=== PATIENT | female | born 1945 | race Caucasian/White ===

== ENCOUNTER 2018-01-10 14:28 | Observation (INO) ==
--- NOTE | 2018-01-10 15:43 | Emergency Department Note ---
Disposition Clinical Impression: Polymyalgia rheumatica, Jaw pain, Atypical angina Hypertension Qualifiers: Hypertension type: essential hypertension Qualified Code(s): I10 - Essential ( primary) hypertension Disposition: Admitted As Inpatient Condition: Good Time of Disposition: 18:56 General Adult HPI - General Chief complaint: ED General Medical Stated complaint: Face pain,high B/P Time Seen by Provider: 01/10/18 15:21 Source: patient, family Mode of arrival: ambulatory Limitations: no limitations Nursing Notes Reviewed: Yes Vital Signs Reviewed: Yes - History of Present Illness HPI Narrative: 72-year-old female with significant past medical history of uncontrolled hypertension presenting to the emergency department complaining of left jaw pain. Patient states she has tried to follow up with her primary care physician but has been unable to make an appointment. Due to the past 2-3 days has been having worsening left-sided jaw pain radiating up from her neck. She denies chest pain, shortness of breath, fevers. Patient was placed on amlodipine for blood pressure states she stopped taking it because it made her gassy and constipated. Patient and put on Coreg. Patient takes this as needed basis. Patient has been taking her blood pressure multiple times a day a week and states her blood pressures is "all over the place". Patient states she has never had a cardiac workup. Pain Scale: 6 - Related Data Home Medications Medication Instructions Recorded Confirmed Cholecalciferol (Vitamin D3) 2,000 unit PO DAILY 10/20/15 01/10/18 [Vitamin D3] Mv-Mn/FA/Vit K1/Lycop/Lut/Zeax 1 - 2 each PO DAILY 10/20/15 01/10/18 [Ocuvite Eye + Multi Tablet] Vitamin B Complex [B Complex] 1 each PO DAILY 10/20/15 01/10/18 Carvedilol [Coreg] 6.25 mg PO BIDWM 12/24/17 01/10/18 Previous Rx's Medication Instructions Recorded predniSONE [PredniSONE] 40 mg PO DAILY #12 tablet 01/11/18 Allergies Allergy/AdvReac Type Severity Reaction Status Date / Time azithromycin Allergy Unknown Unknown Verified 01/10/18 14:33 clarithromycin Allergy Unknown Unknown Verified 01/10/18 14:33 Minocycline Allergy Unknown Unknown Verified 01/10/18 14:33 nitrofurantoin Allergy Unknown Unknown Verified 01/10/18 14:33 Sulfa (Sulfonamide Allergy Unknown Unknown Verified 01/10/18 14:33 Antibiotics) All systems ED: reviewed and negative except as stated. ENT ED: Reports: other (Jaw pain) Past Medical History - Past Medical History Attestation: Yes The following information was validated with the patient. Medical history: Reports: cancer, hypertension Psychiatric history: Reports: anxiety TRADING ASSISTANT history: Reports: no TRADING ASSISTANT history - Social History Smoking Status: Never smoker Smokeless Tobacco Status: No Alcohol use: Reports: none Drug use: Reports: none Physical Exam - General Limitations: no limitations General appearance: alert, in no apparent distress - Head Head exam: atraumatic, normocephalic, normal inspection - Eye Eye exam: Present: normal appearance. Absent: scleral icterus, conjunctival injection - ENT ENT exam: normal exam, normal oropharynx, mucous membranes moist - Neck Neck exam: Present: normal inspection, full ROM. Absent: tenderness, meningismus - Chest Chest inspection: Present: normal inspection, symmetric chest wall rise. Absent : tenderness, rash - Respiratory Respiratory exam: Present: normal lung sounds bilaterally. Absent: respiratory distress, wheezes - Cardiovascular Cardiovascular exam: Present: regular rate, normal rhythm, normal heart sounds - Abdominal Exam Abdominal exam: Present: soft, Non-Tender. Absent: distention, guarding, rebound - Extremities Exam Extremities exam: Present: normal inspection, full ROM - Neurological Exam Neurological exam: Present: alert, oriented X3 - Psychiatric Psychiatric exam: Present: normal affect, normal mood - Skin Skin exam: Present: warm, intact Course Course Narrative: 72-year-old female presenting to the emergency Department chief complaint of uncontrollable high blood pressure along with left jaw pain. Patient has never had a cardiac workup before. Patient's blood pressure in the 190s systolic her. We will provide the patient with oral Coreg at her at home dose. And observed. Patient is alert and oriented 3 in the room. Hypertensive but otherwise stable vital signs. - Reevaluation(s) Reevaluation #1: Patient remained hypertensive after oral medication. We will perform a cardiac workup on the patient at this time including EKG, troponin, chest x-ray. We will also provide her with nitroglycerin. Disposition pending results. Patient is alert and oriented 3 in room. Hypertensive but otherwise stable vital signs. Patient agrees with this plan. Reevaluation #2: Patient states jaw pain is relieved after 2 nitros. Due to this and the fact that the patient has never been worked up for cardiac issues before we will plan to admit the patient. All patient's lab work within normal limits at this time. Patient is alert and oriented 3 in the room. After nitroglycerin patient's blood pressure lower but still hypertensive. All other vital signs stable. I spoke with the hospitalist on-call who agrees to accept the patient at this time. Vital Signs Temperature 98.3 F 01/10/18 14:33 Pulse Rate 81 01/10/18 14:33 Respiratory Rate 15 01/10/18 14:33 Blood Pressure 196/87 01/10/18 14:33 O2 Sat by Pulse Oximetry 97 01/10/18 14:33 Temperature 97.6 F 01/11/18 11:06 Pulse Rate 74 01/11/18 11:06 Respiratory Rate 20 01/11/18 11:06 Blood Pressure 144/68 01/11/18 11:06 O2 Sat by Pulse Oximetry 95 01/11/18 11:06 Oxygen Delivery Oxygen Delivery Room Air Medical Decision Making - Medical Records Medical records reviewed: Yes I reviewed the patient's medical records. - Lab Data Lab results reviewed: Yes I reviewed the patient's lab results. Result diagrams: 01/11/18 04:01 01/11/18 04:01 Lab Results 01/10/18 01/10/18 Range/Units 17:57 17:57 WBC 9.9 (4.3-11.1) K/mcL RBC 4.23 (3.82-4.97) M/mcL Hgb 12.7 (11.5-15.4) g/dL Hct 38.0 (35.3-44.9) % MCV 89.8 (83.0-100.0) fL MCH 30.0 (28.0-33.3) pg MCHC 33.4 (31.6-35.5) g/dL RDW 14.8 H (11.5-14.5) % Plt Count 241 (140-400) K/mcL MPV 10.7 (9.4-12.4) fL Immature Gran % 0.4 (0-4) % Seg Neutrophils % 70.4 % Lymphocytes % 22.9 % Monocytes % 5.9 % Eosinophils % 0.1 % Basophils % 0.3 % Neutrophils # 6.9 (1.6-8.9) K/mcL Lymphocytes # 2.3 (0.6-4.6) K/mcL Monocytes # 0.6 (0.0-1.3) K/mcL Eosinophils # 0.0 (0.0-0.6) K/mcL Basophils # 0.0 (0.0-0.2) K/mcL Sodium 136 (136-145) mEq/L Potassium 4.4 (3.5-5.1) mEq/L Chloride 104 (98-107) mEq/L Carbon Dioxide 23 (23-29) mEq/L BUN 19 (8-23) mg/dL Creatinine 0.91 (0.60-1.20) mg/dL Est GFR ( Amer) > 60 (> 60) Est GFR (Non-Af Amer) > 60 (> 60) BUN/Creatinine Ratio 21 (6-26) Glucose 98 (70-105) mg/dL Calculated Osmolality 284 (280-300) Calcium 9.2 (8.6-10.3) mg/dL Troponin I < 0.03 (< 0.04) ng/mL - Radiology Data Radiology results reviewed: Yes I reviewed the patient's radiology results. Chest X-Ray 01/10/18 18:08 IMPRESSION: No acute process. D/ / Aleksander Garcia MD / Aleksander Garcia MD Interpreting Provider: Aleksander Garcia MD - EKG Data EKG #1 EKG attestation: Yes I reviewed and interpreted this EKG. EKG results narrative: Sinus rhythm. 70 bpm. CO interval 153, QRS 88, QTc 400. No signs of acute ST segment elevation or ischemia noted. Compared to previous EKG completed on 05/2010 no significant changes noted. Attestation Statement - Attestation Attestation: I examined this patient and my medical decision-making was reviewed with the Resident Physician, Dr. Chavez. I agree with the documented findings, disposition and treatment plan as described except to the extent set forth below. Patient is a 72-year-old white female brought in by her today for complaints of severe left-sided jaw pain and elevated blood pressure. Patient has a history of hypertension and polymyalgia rheumatica on steroids follows closely with her family physician. Patient states she has been tracking her heart rate and blood pressures at home and has also been noncompliant with her medications at home as her amlodipine causes her to feel bad and she does not consistently take her other blood pressure medicine. Here in the emergency department patient is awake alert and oriented 4, no focal deficits or slurred speech. No complaints of headache or visual changes. Patient denies any chest pain pressure or heaviness, no shortness of breath, no diaphoresis, no abdominal pain or nausea vomiting. Patient complaining of severe left jaw pain and there is no appreciable facial swelling associated with this no overlying skin changes or rash, no dental pain no sore throat or ear pain and no neck discomfort. I agree with patient's physical exam findings as documented. Vitals are stable with the exception of elevated blood pressure. Patient had lab Tory evaluation performed and on physical exam assessment there is no other explanation for this severe left jaw pain and she does not have any dental etiology no upper respiratory infection no ear infection is seen no adenopathy or neck swelling. Concerning for possible atypical angina. EKG was obtained which was normal sinus rhythm without acute ischemia. Patient was provided aspirin and nitroglycerin in the nitroglycerin completely relieved her jaw pain as well as improved her blood pressure. Patient has not had any recent cardiac workup she states she had a stress test over 25 years ago but nothing since that time. Patient will be admitted for further evaluation for atypical angina and uncontrolled hypertension.
[2018-01-10] MEDS ORDERED: Aspirin 81 MG TAB.CHEW PO ONE (17:36)
[2018-01-10] MEDS: Nitroglycerin 0.4 MG TAB.SUBL SL PRN ×2 (18:03→18:16)
[2018-01-10 18:27] LABS: BUN/Creatinine Ratio 21 (6-26); Blood Urea Nitrogen 19 mg/dL (8-23); Calcium 9.2 mg/dL (8.6-10.3); Carbon Dioxide 23 mEq/L (23-29); Chloride 104 mEq/L (98-107); Glucose 98 mg/dL (70-105); Osmolality,Calculated 284 (280-300); Potassium 4.4 mEq/L (3.5-5.1); Sodium 136 mEq/L (136-145); Troponin I < 0.03 ng/mL (< 0.04); eGFR For African Americans > 60 (> 60); eGFR For Non-African Americans > 60 (> 60)
[2018-01-10] MEDS ORDERED: Nitroglycerin 1 INCH/GM PACKET TP ONE (18:41)
[2018-01-10 18:47] LABS: Basophils % 0.3 %; Eosinophils % 0.1 %; Hemoglobin 12.7 g/dL (11.5-15.4); Immature Granulocytes % 0.4 % (0-4); Lymphocytes # 2.3 K/mcL (0.6-4.6); Lymphocytes % 22.9 %; Mean Corpuscular HGB Conc 33.4 g/dL (31.6-35.5); Mean Corpuscular Volume 89.8 fL (83.0-100.0); Mean Platelet Volume 10.7 fL (9.4-12.4); Monocytes # 0.6 K/mcL (0.0-1.3); Monocytes % 5.9 %; Neutrophils # 6.9 K/mcL (1.6-8.9); Platelet Count 241 K/mcL (140-400); Red Blood Count 4.23 M/mcL (3.82-4.97); Red Cell Distribution Width 14.8 % (11.5-14.5); Segmented Neutrophils % 70.4 %
[2018-01-10] MEDS ORDERED: Naloxone 0.4 MG/ML INJ IVP PRN (21:28)
[2018-01-10] MEDS ORDERED: Acetaminophen 325 MG TABLET PO PRN (21:28)
--- NOTE | 2018-01-10 21:31 | Internal Med History&Physical ---
Date of Encounter: 01/10/18 Time of Encounter: 21:00 Assessment and Plan (1) Jaw pain Current visit: Yes Status: Acute To rule out anginal equivalent/ACS. EKG shows normal sinus rhythm, no acute ischemic changes. Chest x-ray shows no focal infiltrates. Continue telemetry monitoring, serial troponins. Check nuclear stress test in a.m. Continue beta dung, when necessary nitroglycerin. (2) Polymyalgia rheumatica Current visit: Yes Status: Chronic Noted to be on chronic steroids, which could be contributing to uncontrolled hypertension. Follows with rheumatology as outpatient. (3) Hypertension Current visit: Yes Status: Chronic Fairly controlled. Continue beta dung. Will use when necessary IV hydralazine for appropriate blood pressure control. Qualifiers: Hypertension type: essential hypertension Qualified Code(s): I10 - Essential (primary) hypertension Internal Medicine - H&P: HPI Chief complaint: chest pain Admitted From: Emergency Dept Plans for Post Hospital Care: Home History of present illness: Ms. Taveras is a 72 year old female with history of polymyalgia rheumatica, hypertension, who presents with complaints of left-sided jaw pain. Patient maintains a detailed log of blood pressure readings and blood pressure medications, reports that her blood pressure has been difficult to control and Coreg has been started recently and Norvasc stopped due to side effects. She began to notice left-sided jaw and facial pain since yesterday, associated with high readings of blood pressure. No nausea, vomiting, shortness of breath, chest pain, blurred vision. She does have nonspecific headache, no temporal pain. Past Med Surg Social Fam HX - Past Medical History Medical history: cancer (Right breast cancer), hypertension, other Psychiatric history: anxiety - Past Surgical History Surgical History: appendectomy, breast surgery (Right mastectomy, axillary dissection), cholecystectomy, hysterectomy - Social History Smoking Status: Never smoker Smokeless Tobacco Status: No Alcohol use: none Drug use: none Occupational status: retired Current living situation: Home, With Family Activity Level: Independent ambulation Recent Out of Country Travel Within the Last 8 Weeks: No Exposure or Possible Exposure to Illness During Travel: No - Family History Father Living Status: Cause of : CHF Mother Living Status: Cause of : CHF Internal Medicine - H&P: Meds Cholecalciferol (Vitamin D3) [Vitamin D] 2,000 unit PO DAILY 10/20/15 [History] Mv-Mn/FA/Vit K1/Lycop/Lut/Zeax [Ocuvite Eye + Multi Tablet] 1 - 2 each PO DAILY 10/20/15 [History] Vitamin B Complex [B Complex] 1 each PO DAILY 10/20/15 [History] Carvedilol [Coreg] 6.25 mg PO BIDWM 12/24/17 [History] predniSONE [PredniSONE] 10 mg PO DAILY 01/10/18 [History] 3 Allergy/AdvReac Type Severity Reaction Status Date / Time azithromycin Allergy Unknown Unknown Verified 01/10/18 14:33 clarithromycin Allergy Unknown Unknown Verified 01/10/18 14:33 Minocycline Allergy Unknown Unknown Verified 01/10/18 14:33 nitrofurantoin Allergy Unknown Unknown Verified 01/10/18 14:33 Sulfa (Sulfonamide Allergy Unknown Unknown Verified 01/10/18 14:33 Antibiotics) All Systems PM: A 10-system review of systems was performed and is negative for pertinent findings except as documented above in the HPI. - Constitutional Constitutional: no chills, no fever(s), no night sweats - EENT Eyes: no change in vision, no discharge, no pain, no photophobia Ears: no ear discharge, no ear pain, no tinnitus Nose, mouth and throat: as per HPI, facial pain, no dysphagia, no nasal discharge, no neck pain, no sore throat - Cardiovascular Cardiovascular ROS IM: no chest pain, no diaphoresis, no dyspnea, no lightheadedness, no palpitations, no syncope - Respiratory Respiratory: no cough, no dyspnea, no wheezing, no excessive phlegm production - Gastrointestinal Gastrointestinal: no abdominal pain, no diarrhea, no hematemesis, no hematochezia, no melena, no nausea, no vomiting - Genitourinary Genitourinary: no change in urinary stream, no dysuria, no flank pain, no hematuria - Musculoskeletal Musculoskeletal ROS IM: no numbness, no tingling - Integumentary Integumentary IM: no rash, no unusual bruising - Neurological Neurological ROS: no confusion, no convulsions, no focal weakness, no numbness, no tingling, no tremor(s) - Hematologic/Lymphatic Hematologic/Lymphatic: no easy bruising - Constitutional Vitals: Temp Pulse Resp BP Pulse Ox 97.8 F 63 16 127/68 94 01/10/18 21:09 01/10/18 21:09 01/10/18 21:09 01/10/18 21:09 01/10/18 21:09 General appearance: Present: A&O X 3, answers questions appropriately - Respiratory Respiratory exam: Present: CTAB. Absent: accessory muscle use, rales, rhonchi, wheezes - Cardiovascular Cardiovascular exam: Present: RRR, +S1, +S2. Absent: diastolic murmur, gallop, rubs, systolic murmur - GI/Abdominal GI/Abdominal exam: Present: normal bowel sounds, soft, no peritoneal signs. Absent: distended, tenderness - Extremities Exam Extremities exam: Present: full ROM, warm, radial pulses palpable and symmetrical. Absent: calf tenderness, cyanotic, pedal edema - Neurological Exam Neurological exam: Present: CN II-XII intact, oriented X3, no focal deficits. Absent: pronater drift, facial droop, speech deficit Internal Med - H&P Results - Labs CBC & Chem 7: 01/10/18 17:57 01/10/18 17:57
[2018-01-11 05:20] LABS: Basophils % 0.4 %; Eosinophils # 0.1 K/mcL (0.0-0.6); Eosinophils % 0.9 %; Hematocrit 36.6 % (35.3-44.9); Hemoglobin 12.1 g/dL (11.5-15.4); Immature Granulocytes % 0.4 % (0-4); Lymphocytes # 3.2 K/mcL (0.6-4.6); Lymphocytes % 42.4 %; Mean Corpuscular HGB Conc 33.1 g/dL (31.6-35.5); Mean Corpuscular Hemoglobin 29.8 pg (28.0-33.3); Mean Corpuscular Volume 90.1 fL (83.0-100.0); Mean Platelet Volume 10.9 fL (9.4-12.4); Monocytes # 0.6 K/mcL (0.0-1.3); Monocytes % 7.6 %; Neutrophils # 3.6 K/mcL (1.6-8.9); Platelet Count 213 K/mcL (140-400); Red Blood Count 4.06 M/mcL (3.82-4.97); Red Cell Distribution Width 14.8 % (11.5-14.5); Segmented Neutrophils % 48.3 %
[2018-01-11 05:26] LABS: BUN/Creatinine Ratio 20 (6-26); Blood Urea Nitrogen 19 mg/dL (8-23); Calcium 8.9 mg/dL (8.6-10.3); Carbon Dioxide 24 mEq/L (23-29); Chloride 108 mEq/L (98-107); Chol/HDL Ratio 2.9 (0-4.9); Cholesterol 180 mg/dL (< 200); Glucose 84 mg/dL (70-105); HDL Cholesterol 63 mg/dL (40-59); LDL Cholesterol,Calculated 95 mg/dL (0-99); Magnesium 2.3 mg/dL (1.6-2.6); Osmolality,Calculated 289 (280-300); Potassium 3.8 mEq/L (3.5-5.1); Sodium 139 mEq/L (136-145); Triglycerides 112 mg/dL (< 150); eGFR For African Americans > 60 (> 60); eGFR For Non-African Americans 59 (> 60)
[2018-01-11] MEDS ORDERED: Regadenoson 0.4 MG/5 ML SYRINGE IVP ONE (05:45)
[2018-01-11] MEDS ORDERED: predniSONE 5 MG TABLET PO SCH (09:00)
[2018-01-11 11:17] VITALS: BP 144/68
[2018-01-11] MEDS ORDERED: predniSONE 10 MG TABLET PO ONE (12:04)
--- NOTE | 2018-01-11 12:09 | Discharge Summary ---
- NOTES TO OUTPATIENT PROVIDER Notes to Outpatient Provider: ESR WNL- 8. Prednisone increased to 40mg po daily. Orders not resulted at time of discharge: Pending orders 01/11/18 06:00 NM trisha perf SPECT multi [NM] Routine 01/11/18 11:51 ESR [Erythrocyte Sedimentation Rate] [HEME] Stat Date of Encounter: 01/11/18 Time of Encounter: 11:30 - Discharge Diagnosis (1) DVT prophylaxis Priority: Secondary Status: Acute Comments: Observation, pt was ambulatory. (2) Jaw pain Priority: Secondary Status: Acute Comments: Pt admitted for intermittent jaw pain with associated hypertension. Pt was admitted for r/o ACS workup. EKG NSR, no ST changes, chest xray negative for acute process, Troponins negative. Stress test was negative for ischemia or infarct with a gated EF of 65%. There was a small sized, mild intensity, fixed apical lateral defect consistent with artifact. PT denies chest pain, SOB, N/V, or diaphoresis. Suspect that this is not cardiac in nature and related to GCA. (3) Hypertension Priority: Secondary Status: Chronic Comments: Pt with chronic HTN, well controlled with intermittent episodes of increased HTN with facial/jaw pain. Continue BB at home. Qualifiers: Hypertension type: essential hypertension Qualified Code(s): I10 - Essential (primary) hypertension (4) Polymyalgia rheumatica Priority: Secondary Status: Chronic Comments: Pt on chronic steroids. Follows with Dr. Mata. (5) Temporal arteritis Priority: Secondary Status: Suspected Comments: Suspected. Differentials include TMJ pain/disease, temporal arteritis, and trigeminal neuralgia, though less likely due to duration of pain. Pt reports intermittent jaw pain and indicates pain originates "between my front teeth" with radiation to left jaw and fullness in the left ear. Pt does not answer when asked if temples are tender to palpation. She denies vision changes, n/v, dizziness, but does report associated frontal headache. Onset of pain 1 week ago. She describes it as intermittent, lasting anywhere from 30 min to "all day". She states that her face hurts and is tender to palpation with episodes of pain. She denies clicking of jaw with chewing. No tenderness to palpation at hoahaoism or jaw on physical exam. ESR WNL at 8. Chronic steroid use for polymyalgia rheumatica and follows with Dr. Mata, rheumatology. I have increased prednisone to 40mg po daily from 10mg po daily, pt has follow up with Dr. Mata on 01/15/18. Hospital course: Ms. Taveras is a 72 year old female with past medical history of hypertension, breast cancer, osteopenia, polymyalgia rheumatica area patient presented to the emergency room with 1 week history of intermittent facial and jaw pain with associated hypertension. Patient reports onset of pain with fullness in left ear. She describes the pain is intermittent, sharp, lasting anywhere from 30 minutes to all day. Face is tender to palpation, pain is greatest in the left jaw. She denies any vision changes, nausea or vomiting, she denies dizziness. She does report associated headache with pain. She reports the pain is only on the left side and indicates that at certain exactly between her two front teeth and radiates over to the left. Physical exam is unremarkable. Chest x-ray was negative for acute process. The pressure is been well controlled, she will continue beta dung at home. ESR is within normal limits. Nuclear stress test showed a gated EF of 65%, imaging was negative for ischemia or infarct. Patient denies chest pain or shortness of breath. Patient takes prednisone daily for polymyalgia rheumatica, suspect jaw and facial pain due to temporal arteritis. Differentials included in assessment and plan. Patient is pain-free at this time, vitals and labs are stable and within normal limits. She has a follow-up appointment with rheumatology in 4 days. I discussed plan with wheat and oats flake miller over the phone, I appreciate his recommendations and consultation by phone. Recommended that I increase Prednisone 40mg po daily until she is seen on Sunday in the office. Pt is stable and appropriate for discharge. Discharge discussed with: patient - Time Spent with Patient Total time spent providing and/or coordinating discharge services: Less than 30 minutes - Discharge Medications Prescriptions: predniSONE [PredniSONE] 40 mg PO DAILY #12 tablet Home Medications: Cholecalciferol (Vitamin D3) [Vitamin D3] 2,000 unit PO DAILY 10/20/15 [History] Mv-Mn/FA/Vit K1/Lycop/Lut/Zeax [Ocuvite Eye + Multi Tablet] 1 - 2 each PO DAILY 10/20/15 [History] Vitamin B Complex [B Complex] 1 each PO DAILY 10/20/15 [History] Carvedilol [Coreg] 6.25 mg PO BIDWM 12/24/17 [History] predniSONE [PredniSONE] 40 mg PO DAILY #12 tablet 01/11/18 [Rx] Allergies/Adverse Reactions: 3 Allergy/AdvReac Type Severity Reaction Status Date / Time azithromycin Allergy Unknown Unknown Verified 01/10/18 14:33 clarithromycin Allergy Unknown Unknown Verified 01/10/18 14:33 Minocycline Allergy Unknown Unknown Verified 01/10/18 14:33 nitrofurantoin Allergy Unknown Unknown Verified 01/10/18 14:33 Sulfa (Sulfonamide Allergy Unknown Unknown Verified 01/10/18 14:33 Antibiotics) Date of admission: 01/10/18 19:50 Primary care physician: Barney Hobson MD Discharging clinician: Irma Tom Anticipated date of discharge: 01/11/18 - Constitutional Vitals: Temp Pulse Resp BP Pulse Ox 97.6 F 74 20 144/68 95 01/11/18 11:06 01/11/18 11:06 01/11/18 11:06 01/11/18 11:06 01/11/18 11:06 General appearance: Present: cooperative, A&O X 3, pleasant, no acute distress, answers questions appropriately - Head Head exam: Present: atraumatic, normal inspection, normocephalic - Eye Eye exam: Present: normal appearance, conjuntiva pink, sclera anicteric - Neck Neck exam general surgery: Present: supple, trachea midline. Absent: lymphadenopathy, tenderness - Respiratory Respiratory exam: Present: CTAB. Absent: accessory muscle use, chest wall tenderness, rales, respiratory distress, rhonchi, wheezes - Cardiovascular Cardiovascular exam: Present: RRR, +S1, +S2. Absent: diastolic murmur, gallop, rubs, systolic murmur - GI/Abdominal GI/Abdominal exam: Present: normal bowel sounds, soft. Absent: distended, hepatomegaly, tenderness - Extremities Exam Extremities exam: Present: normal capillary refill, normal inspection, warm, radial pulses palpable and symmetrical. Absent: calf tenderness, cyanotic, pedal edema, tenderness - Neurological Exam Neurological exam: Present: alert, CN II-XII intact, oriented X3, no focal deficits. Absent: altered, motor sensory deficit, facial droop, speech deficit - Expanded Neurological Exam Speech: Absent: expressive aphasia - Skin Skin exam: Present: dry, intact, normal color, warm. Absent: rash - Patient Status Disposition: Home, Self-Care Condition: Good Functional capacity at discharge: independent ambulation Overall status at discharge: patient is back to baseline - Discharge Instructions Follow Up With: Barney Hobson MD [Primary Care Provider] - Additional Instructions: Increase your steroids to 40mg daily, I have called in the prescription to your pharmacy. Stop taking the 10mg tablets, but save them for later use. See Dr. Hannah as scheduled on Sunday. REturn to the ER as needed for any other problems or concerns, or if your symptoms return or worsen. Resume your normal medications, as well as your diet and activities as tolerated. - Diet and Activity Activity: increase activity as tolerated Diet: advance to your usual diet
[2018-01-12] MEDS ORDERED: predniSONE 20 MG TABLET PO SCH (09:00)
--- NOTE | 2018-01-15 21:16 | Electrocardiograph Report ---
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
== END 2018-01-11 15:20 | disposition home or self-care (01) ==
LOC: EMEROO 14:28 → 3BNU 14:28
PROVIDERS: ADMIT Registered Nurse; ATTEND Registered Nurse